=== PATIENT | female | born 1990 ===

== ENCOUNTER 2025-01-11 03:21 | Emergency (ER) | payer SELFPAY ==
[2025-01-11 03:23] VITALS: BMI 25.8
[2025-01-11 03:40] VITALS: BP 129/83; PULSE 128; RESP 22; TEMP 37.3; O2SAT 95
--- NOTE | 2025-01-11 03:49 | EDRME_ITS ---
Rapid Medical Screening Exam [facility] Arrival date/time: 01/11/25 03:21 Chief Complaint: Abdominal Pain Vital signs: Vital Signs Temperature 99.2 F 01/11/25 03:40 Pulse Rate 128 H 01/11/25 03:40 Respiratory Rate 22 H 01/11/25 03:40 Blood Pressure 129/83 01/11/25 03:40 Pulse Oximetry (%) 95 01/11/25 03:40 Oxygen Delivery Method Room Air 01/11/25 03:40 E Narrative: Bilateral side/abdominal pain, n/v since last night. Hx gastric CA currently on IV/PO chemo.
[2025-01-11 04:23] VITALS: BP 122/73; PULSE 111; RESP 22; TEMP 37.4; O2SAT 99
[2025-01-11 05:12] LABS: Basophils # (Auto) 0.0 Thou/mm3 (0.0-0.2); Basophils % (Auto) 0 % (0-2.5); Eosinophils # (Auto) 0.1 Thou/mm3 (0.0-0.5); Eosinophils % (Auto) 1 % (0-10); Hematocrit 32.4 % (36.0-46.0); Hemoglobin 10.3 g/dL (12.0-16.0); Immature Granulocytes Auto 0.02 Thou/mm3 (0.00-0.00); Lymphocytes # (Auto) 1.3 Thou/mm3 (1.0-4.8); Lymphocytes % (Auto) 18 % (10-50); Mean Corpuscular HGB Conc 31.8 g/dl (31.0-37.0); Mean Corpuscular Hemoglobin 22.5 pg (25.0-35.0); Mean Corpuscular Volume 71 fL (80-100); Monocytes # (Auto) 0.5 Thou/mm3 (0.0-0.8); Monocytes % (Auto) 6 % (0-12); Neutrophils # (Auto) 5.4 Thou/mm3 (1.8-7.7); Neutrophils % (Auto) 74 % (37-80); Nucleated Red Blood Cell # 0.00 Thou/mm3 (0.00-0.00); Nucleated Red Blood Cell % 0 /100 WBC (0); Platelet Count 277 Thou/mm3 (140-440); RDW Standard Deviation 43.9 fL (36.4-46.3); Red Blood Count 4.58 Miln/mm3 (4.00-5.20); White Blood Count 7.3 Thou/mm3 (3.6-11.0)
[2025-01-11 05:31] LABS: Alanine Aminotransferase 81 U/L (10-49); Albumin, Serum 4.6 gm/dL (3.5-5.0); Albumin/Globulin Ratio 1.3 (1.2-2.2); Alkaline Phosphatase 148 U/L (46-116); Anion Gap 7 (7-16); Aspartate Amino Transferase 129 U/L (0-34); BUN/Creatinine Ratio 13 Ratio (12-20); Bilirubin,Total 0.3 mg/dL (0.3-1.2); Blood Urea Nitrogen 12 mg/dL (9-23); Calcium 9.7 mg/dL (8.3-10.6); Calcium (Corrected) 9.7 mg/dL (8.5-10.1); Carbon Dioxide 24.6 mMol/L (20.0-31.0); Chloride 107 mMol/L (98-107); Creatinine (Component) 0.9 mg/dL (0.6-1.3); Estimated Creatinine Clearance 91.3 mL/min (>60); Globulin 3.5 gm/dL (2.3-3.5); Glucose 173 mg/dL (74-106); Lipase 33 U/L (12-53); Osmolality,Calculated 281 (275-295); Potassium 4.3 mMol/L (3.4-5.1); Sodium 139 mMol/L (136-145); Total Protein 8.1 gm/dL (5.7-8.2); eGFR > 60 See Note
--- NOTE | 2025-01-11 06:20 | PC.NURSE ---
Pt refused zofran and NS . Pt realized that ED MD recognized her from a visit recently. pt denied being here in the past. I saw her as a pt under a different name several months ago when she left abruptly after ED MD confronted her about faulse ID and medical hx. I asked if she had been here befor and she denied it. However i told her I remembered her son last time I saw her. after i left her rm, she went to the BR and when she came back she states Im in too much pain. Im going to leave When she noticed i was outside her rm and Earlier she was threatening to leave and I informed her that if she was going to leave, I need to remove her IV. She sent her son out to let me know she was going to leave. I removed her IV. she then quickly walked out the Ambulance bay doors. refused to seth out AMA.
== END 2025-01-11 06:20 | disposition left against medical advice (07) ==
LOC: SERX 07:13
PROVIDERS: Physician Assistant; Emergency Provider Emergency Medicine
DX: R10.9 Unspecified abdominal pain (principal); Z53.29 Procedure and treatment not carried out because of patient's decision for other reasons
CPT/HCPCS: 36415; 80053; 81001; 81025; 83690; 85025; 99281